=== PATIENT | female | born 1940 | race Caucasian/White ===

== ENCOUNTER 2017-08-29 20:00 | Emergency (ER) | payer MEDICARE, MEDICAID ==
[2017-08-29] MEDS ORDERED: Famotidine 20 MG/2 ML SDV IVPUSH ONE (20:21)
[2017-08-29] MEDS ORDERED: Metoprolol Tartrate 5 MG/5 ML SDV IVPUSH ONE (20:21)
--- NOTE | 2017-08-29 20:21 | EDM.PDOC ---
ED HPI GENERAL MEDICAL PROBLEM - General Chief Complaint: General Stated Complaint: Dizziness Time Seen by Provider: 08/29/17 20:20 Source of Information: Reports: Patient, EMS, EMS Notes Reviewed, Care Home Records, Old Records ([facility] chart/EMR) History Limitations: Reports: Altered Mental Status - History of Present Illness INITIAL COMMENTS - FREE TEXT/NARRATIVE: The patient was brought to the emergency room via ambulance with basic EMT transport with no treatment in route. Note the patient was outside when she again having some intermittent dizziness with borderline vertigo and some mild tachycardia with no history of fall, syncope, injury, etc. She is a poor historian secondary to her baseline organic brain syndrome, which is stable per nurse's history from the longterm. The patient denies any chest pain/ pressure, orthostasis, orthopnea, diaphoresis, paresthesias, recent decreased exercise tolerance, or any other anginal-type symptoms. No recent history of abdominal pain, heartburn, nausea, diarrhea, melena, gross hematochezia, or any food intolerance, including fatty foods, etc.. She also denies any UTI symptoms. The patient also denies any recent fever, cough, wheezing, dyspnea, etc.. No history of recent headaches, visual changes, diplopia, change in mental status, or other change in neurological status. She denies any pain or discomfort other than her 5/10 chronic low back pain. Onset: Today, Gradual Onset Date: 08/29/17 Onset Time: 16:00 Duration: Intermittent Quality: Reports: Same as Previous Episode Severity: Mild Improves with: Reports: None Worsens with: Reports: None Context: Reports: Other (As above). Denies: Sick Contact, Trauma Associated Symptoms: Reports: Confusion (Stable chronic). 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: Other (see below) (None) Back Pain Score (Numeric/FACES): 5 (Stable chronic low back pain) - Related Data Allergies Allergy/AdvReac Type Severity Reaction Status Date / Time strawberry Allergy Facial Verified 07/22/15 15:37 Swelling Home Meds: Home Meds Acetaminophen [Acetaminophen Extra Strength] 2 tab PO BID 10/15/14 [History] Alendronate Sodium [Alendronate] 70 mg PO Q7D 10/15/14 [History] Calcium Carbonate/Vitamin D3 [Calcium 600 + D Tablet] 1 tab PO BID 10/15/14 [ History] Cranberry Extract [Cranberry] 500 mg PO BID 10/15/14 [History] Cyanocobalamin (Vitamin B-12) [Cyanocobalamin Injection] 1,000 mcg IM Q30D 10/15 [History] Diltiazem HCl [Cardizem Cd] 1 cap PO DAILY 10/15/14 [History] Folic Acid 1 tab PO DAILY 10/15/14 [History] Gemfibrozil [Lopid] 1 tab PO BID 10/15/14 [History] Loratadine 1 tab PO DAILY 10/15/14 [History] Magnesium Chloride [Mag-64] 1 tab PO DAILY 10/15/14 [History] Multivit-Min/FA/Lycopene/Lut [Sentry Senior Tablet] 1 tab PO DAILY 10/15/14 [ History] Omeprazole 20 mg PO BID 10/15/14 [History] Oxybutynin Chloride 5 mg PO TID 10/15/14 [History] Potassium Chloride 1 cap PO BID 10/15/14 [History] QUEtiapine Fumarate [Quetiapine Fumarate] 50 mg PO 0800 10/15/14 [History] QUEtiapine Fumarate [Quetiapine Fumarate] 200 mg PO BEDTIME 10/15/14 [History] diphenhydrAMINE HCl [Diphenhydramine HCl] 2 tab PO Q6HR PRN 10/15/14 [History] fluvoxaMINE [Luvox] 150 mg PO BID 10/15/14 [History] Container,Empty [Enema Bottle] 1 each MC DAILY PRN 07/22/15 [History] Lactulose 30 ml PO BID 07/22/15 [History] Lisinopril 5 mg PO DAILY 07/22/15 [History] Non-Formulary Medication [NF Drug] 10 ml PO Q4H PRN 07/22/15 [History] Sennosides/Docusate Sodium [Senna-S Tablet] 1 each PO BID 07/22/15 [History] diphenhydrAMINE HCl [Diphedryl] 25 mg PO Q6H PRN 07/22/15 [History] Furosemide [Lasix] 20 mg PO DAILY #14 tab 08/29/17 [Rx] Levothyroxine [Synthroid] 50 mcg PO ACBREAKFAST #60 tab 08/29/17 [Rx] Metoprolol Succinate [Toprol XL] 25 mg PO BEDTIME #30 tab.er 08/29/17 [Rx] Potassium Chloride 20 meq PO DAILY #14 tablet.er 08/29/17 [Rx] Past Medical History HEENT History: Reports: Allergic Rhinitis, Hard of Hearing, Impaired Vision, Other (See Below) Other HEENT History: Hx of Conjunctivitis. Patient wears glasses. Mild bilateral presbycusis with no current therapy. Cardiovascular History: Reports: Afib, Arrhythmia, CAD, Cardiomyopathy, Heart Failure, High Cholesterol, Hypertension, Other (See Below) Other Cardiovascular History: Cardiomegaly. Dyslipidemia. Respiratory History: Reports: Bronchitis, Recurrent, COPD, Intubation, Previous , Pulmonary Fibrosis. Denies: Intubation, Difficult Gastrointestinal History: Reports: Cholelithiasis, Chronic Constipation, Colon Polyp, Fecal Incontinence, Gastritis, GERD, Hemorrhoids, Hiatal Hernia, Jaundice , PUD, Other (See Below) Other Gastrointestinal History: Fatty liver with chronic LFTs elevation. History of colon cancer as below. 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 Previous history of left ankle fracture. Left elbow fracture in 2001. Left proximal femur fracture on 12/16/10. Scoliosis. 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 Psychiatric History: Reports: Alzheimers Disease, Anxiety, Dementia, Depression , Emotional Problems, OCD, Schizophrenia, Other (See Below) Other Psychiatric History: personality disorder Endocrine/Metabolic History: Reports: Osteopenia, Osteoporosis, Other (See Below ) Other Endocrine/Metabolic History: Hypomagnesemia Hematologic History: Reports: Anemia, B12 Deficiency, Iron Deficiency, Other ( See Below) Other Hematologic History: Polycythemia. Pernicious anemia. Immunologic History: Reports: None Oncologic (Cancer) History: Reports: Colon, Other (See Below) Other Oncologic History: Atypical urothelial cells on 02/21/06 with unknown workup or treatment. - Infectious Disease History Infectious Disease History: Reports: Other (See Below) Other Infectious Disease History: Polio as a child - Past Surgical History HEENT Surgical History: Reports: Oral Surgery, Other (See Below) Other HEENT Surgeries/Procedures: Complete teeth extractions. GI Surgical History: Reports: Colon, Colonoscopy, EGD, Polypectomy, Other (See Below) Other GI Surgeries/Procedures: Rectal polyp excision via colonoscopy on . EGD and colonoscopy on 08/08/07 and 08/17/05. Right hemicolectomy concomitant appendectomy secondary to colon cancer in the . Female Surgical History: Reports: Hysterectomy, Other (See Below) Other Female Surgeries/Procedures: Hysterectomy in 2004 for unknown reason. Musculoskeletal Surgical History: Reports: ORIF, Other (See Below) Other Musculoskeletal Surgeries/Procedures:: ORIF of left ankle and left hip fracture. ORIF of left elbow fracture in 2001. - Past Imaging History Past Imaging History: Reports: CAT Scan (CT of the abdomen and pelvis on . CT of the chest on 07/22/15), DEXA Scan (04/13/11) Social & Family History - Tobacco Use Smoking Status *Q: Never Smoker Tobacco Use Within Last Twelve Months: No Used Tobacco, but Quit: No Smoking Cessation Information Provided To Patient: No Second Hand Smoke Exposure: No Second Hand Smoke Education Provided: No - Living Situation & Occupation Living situation: Reports: Extended Care Facility ([facility] longterm, basic care) ED ROS GENERAL - Review of Systems Review Of Systems: ROS reveals no pertinent complaints other than HPI. ED EXAM, GENERAL - Physical Exam Exam: See Below Exam Limited By: No Limitations General Appearance: Alert, WD/WN, No Apparent Distress Eye Exam: Bilateral Eye: EOMI, Normal Fundi, Normal Inspection (No nystagmus with questionable borderline vertigo with head movement. She is not wearing her glasses), PERRL Ears: Normal External Exam, Normal Canal, Normal TMs, Hearing Loss (Mild bilateral presbycusis with no therapy) Nose: Normal Inspection, Normal Mucosa, No Blood Throat/Mouth: Normal Lips, Normal Gums, Normal Oropharynx, Normal Voice, No Airway Compromise. No: Normal Teeth (Complete absent dentition with the patient not having her dentures), Dysphagia, Perioral Cyanosis Head: Atraumatic, Normocephalic. No: Facial Swelling, Facial Tenderness, Sinus Tenderness Neck: Supple, Non-Tender, Full Range of Motion, Carotid Bruit (Mild bilateral carotid bruits). No: Lymphadenopathy (L), Lymphadenopathy (R), Thyromegaly Respiratory/Chest: No Respiratory Distress, Lungs Clear, Normal Breath Sounds, No Accessory Muscle Use, Chest Non-Tender. No: Pleural Rub, Retractions Cardiovascular: Normal Peripheral Pulses, No Gallop, No JVD, No Murmur, No Rub, Tachycardia, Irregularly Irregular. No: No Edema (Stable dependent edema by history), Gallop/S3, Gallop/S4 Peripheral Pulses: 2+: Radial (L), Radial (R), Dorsalis Pedis (L), Dorsalis Pedis (R) GI/Abdominal: Normal Bowel Sounds, Soft, Non-Tender, No Organomegaly, No Distention, No Abnormal Bruit, No Mass, Pelvis Stable. No: Guarding (Female) Exam: Deferred Rectal (Female) Exam: Deferred Back Exam: Full Range of Motion, Other (Mild scoliosis, no tenderness). No: CVA Tenderness (L), CVA Tenderness (R), Muscle Spasm, Paraspinal Tenderness, Vertebral Tenderness Extremities: Non-Tender, Normal Capillary Refill, Pedal Edema (Stable +1 bilateral pedal/pretibial edema), Other (Stable moderate laxity of the left arm secondary to distant fracture). No: Gwen's Sign Neurological: Alert, Normal Reflexes (Negative Babinski's), Confused (Stable mild to moderate organic brain syndrome) Psychiatric: Normal Affect, Normal Mood Skin Exam: Warm, Dry, Intact, Normal Color, No Rash. No: Diaphoretic Lymphatic: No Adenopathy EKG INTERPRETATION EKG Date: 08/29/17 Time: 21:13 Rhythm: A-Fib Rate (Beats/Min): 98 [place]: Normal (Cardiac axisleft) P-Wave: Variable QRS: Normal (QRS interval of 0.08 seconds) ST-T: Other (Improved T-wave inversion in leads V1- V3 and lead 3 with previous T-wave inversions in leads V4 and V5.) QT: Prolonged (366/467 ms) MA/PQ Interval: Not applicable Comparison: Change From Previous EKG (Since last EKG on 07/22/15 as above) Course - Vital Signs Last Recorded V/S: Last Vital Signs Temp 36.8 C 08/29/17 21:32 Pulse 116 H 08/29/17 22:27 Resp 20 08/29/17 22:27 BP 129/73 08/29/17 22:27 Pulse Ox 97 08/29/17 22:27 Vital Signs - 24 hr 08/29/17 08/29/17 08/29/17 20:21 20:44 20:50 Temperature [ Temporal] Pulse, 118 H Peripheral Pulse, 117 H 96 Peripheral [ Right Pulse Oximetry] Respiratory 20 20 Rate Blood Pressure 108/91 H Blood Pressure 108/91 H 123/80 [Right Upper Arm] O2 Sat by Pulse 96 97 Oximetry 08/29/17 08/29/17 08/29/17 21:32 21:38 22:01 Temperature [ 36.8 C Temporal] Pulse, Peripheral Pulse, 121 H 97 93 Peripheral [ Right Pulse Oximetry] Respiratory 21 H 19 18 Rate Blood Pressure Blood Pressure 96/59 L 113/81 109/76 [Right Upper Arm] O2 Sat by Pulse 98 97 98 Oximetry 08/29/17 08/29/17 22:23 22:27 Temperature [ Temporal] Pulse, 117 H Peripheral Pulse, 116 H Peripheral [ Right Pulse Oximetry] Respiratory 20 Rate Blood Pressure 129/73 Blood Pressure 129/73 [Right Upper Arm] O2 Sat by Pulse 97 Oximetry - Orders/Labs/Meds Orders: Active Orders 24 hr Category Date Time Status Cardiac Monitoring [RC] . DIRECTED Care 08/29/17 20:21 Active EKG Documentation Completion [RC] ASDIRECTED Care 08/29/17 20:21 Active Oxygen Therapy, ED [RC] PRN Care 08/29/17 20:21 Active Peripheral IV Care [RC] . DIRECTED Care 08/29/17 20:21 Active Pulse Oximetry [RC] CONTINUOUS Care 08/29/17 20:21 Active Up With Assistance [RC] PFP Care 08/29/17 20:21 Active Vital Signs [RC] PFP Care 08/29/17 20:21 Active Nothing per Oral Now Diet [DIET] Diet 08/29/17 Breakfast Active Chest 1V Frontal [CR] Stat Exams 08/29/17 20:21 Taken IRON/TIBC [CHEM] Routine Lab 08/29/17 21:40 Ordered Sodium Chloride 0.9% [Saline Flush] Med 08/29/17 20:21 Active 10 ml FLUSH ASDIRECTED PRN Obtain Past Medical Record [OM.PC] Urgent Oth 08/29/17 20:21 Active Peripheral IV Insertion Adult [OM.PC] Stat Oth 08/29/17 20:21 Ordered Resuscitation Status Stat Resus Stat 08/29/17 20:21 Ordered Medication Orders Sodium Chloride (Saline Flush) 10 ml FLUSH ASDIRECTED PRN PRN Reason: Keep Vein Open Last Admin: 08/29/17 22:34 Dose: 10 ml Admin: 08/29/17 20:44 Dose: 10 ml Labs: Laboratory Tests 08/29/17 08/29/17 08/29/17 Range/Units 20:35 20:35 20:35 WBC 9.8 (4.0-10.2) K/uL RBC 3.38 L (3.77-5.09) M/uL Hgb 10.6 L D (11.7-15.5) g/dL Hct 31.8 L (34.0-46.0) % MCV 94.1 D (84.0-98.0) fL MCH 31.4 (28.2-33.3) pg MCHC 33.3 (31.7-36.0) g/dL RDW 13.3 (11.2-14.1) % Plt Count 293 (150-350) K/uL Neut % (Auto) 82.6 H (45.0-80.0) % Lymph % (Auto) 8.0 L (10.0-50.0) % [place] % (Auto) 7.8 (2.0-14.0) % Eos % (Auto) 1.3 (0.0-5.0) % Baso % (Auto) 0.3 (0.0-2.0) % Neut # (Auto) 8.05 H (1.40-7.00) K/uL Lymph # (Auto) 0.78 (0.50-3.50) K/uL [place] # (Auto) 0.76 (0.00-1.00) K/uL Eos # (Auto) 0.13 (0.00-0.50) K/uL Baso # (Auto) 0.03 (0.00-0.20) K/uL PT 23.3 H (9.8-11.7) SEC INR 2.1 APTT 33.7 H (22.1-29.8) SEC D-Dimer, Quantitative 140 (0-400) ng/mL Sodium (136-145) mmol/L Potassium (3.5-5.1) mmol/L Chloride (98-107) mmol/L Carbon Dioxide (21.0-32.0) mmol/L BUN (7-18) mg/dL Creatinine (0.51-1.17) mg/dL Est Cr Clr Drug Dosing mL/min Estimated GFR (MDRD) mL/min Glucose (74-106) mg/dL Lactic Acid (0.4-2.0) mmol/L Uric Acid (2.6-7.2) mg/dL Calcium (8.5-10.1) mg/dL Magnesium (1.8-2.4) mg/dL Total Bilirubin (0.2-1.0) mg/dL AST (15-37) U/L ALT (12-78) U/L Alkaline Phosphatase (46-116) IU/L Creatine Kinase (26-308) U/L Creatine Kinase Index (0.0-2.5) % CK-MB (CK-2) (0.00-3.60) ng/mL Troponin I (0.000-0.056) ng/mL NT-Pro-B Natriuret Pep (0-125) pg/mL Total Protein (6.4-8.2) g/dL Albumin (3.4-5.0) g/dL TSH, Ultra Sensitive (0.358-3.740) mIU/mL 08/29/17 08/29/17 Range/Units 20:35 20:35 WBC (4.0-10.2) K/uL RBC (3.77-5.09) M/uL Hgb (11.7-15.5) g/dL Hct (34.0-46.0) % MCV (84.0-98.0) fL MCH (28.2-33.3) pg MCHC (31.7-36.0) g/dL RDW (11.2-14.1) % Plt Count (150-350) K/uL Neut % (Auto) (45.0-80.0) % Lymph % (Auto) (10.0-50.0) % [place] % (Auto) (2.0-14.0) % Eos % (Auto) (0.0-5.0) % Baso % (Auto) (0.0-2.0) % Neut # (Auto) (1.40-7.00) K/uL Lymph # (Auto) (0.50-3.50) K/uL [place] # (Auto) (0.00-1.00) K/uL Eos # (Auto) (0.00-0.50) K/uL Baso # (Auto) (0.00-0.20) K/uL PT (9.8-11.7) SEC INR APTT (22.1-29.8) SEC D-Dimer, Quantitative (0-400) ng/mL Sodium 140 (136-145) mmol/L Potassium 4.3 (3.5-5.1) mmol/L Chloride 109 H (98-107) mmol/L Carbon Dioxide 13.6 L (21.0-32.0) mmol/L BUN 32 H (7-18) mg/dL Creatinine 1.24 H (0.51-1.17) mg/dL Est Cr Clr Drug Dosing 35.57 mL/min Estimated GFR (MDRD) 42 mL/min Glucose 108 H (74-106) mg/dL Lactic Acid 1.0 (0.4-2.0) mmol/L Uric Acid 5.5 (2.6-7.2) mg/dL Calcium 8.0 L (8.5-10.1) mg/dL Magnesium 0.8 L (1.8-2.4) mg/dL Total Bilirubin 0.1 L (0.2-1.0) mg/dL AST 20 (15-37) U/L ALT 19 (12-78) U/L Alkaline Phosphatase 78 (46-116) IU/L Creatine Kinase 49 (26-308) U/L Creatine Kinase Index 2.2 (0.0-2.5) % CK-MB (CK-2) 1.10 (0.00-3.60) ng/mL Troponin I 0.002 (0.000-0.056) ng/mL NT-Pro-B Natriuret Pep 2754 H (0-125) pg/mL Total Protein 6.5 (6.4-8.2) g/dL Albumin 2.8 L (3.4-5.0) g/dL TSH, Ultra Sensitive 4.378 H (0.358-3.740) mIU/mL Meds: Medications Generic Name Dose Route Start Last Admin Trade Name Freq PRN Reason Stop Dose Admin Sodium Chloride 10 ml 08/29/17 20:21 08/29/17 22:34 Saline Flush FLUSH 10 ml ASDIRECTED PRN Administration Keep Vein Open Discontinued Medications Generic Name Dose Route Start Last Admin Trade Name Freq PRN Reason Stop Dose Admin Famotidine 40 mg 08/29/17 20:21 08/29/17 20:43 Pepcid IVPUSH 08/29/17 20:22 40 mg ONETIME ONE Administration Furosemide 40 mg 08/29/17 22:29 08/29/17 22:32 Lasix IVPUSH 08/29/17 22:30 40 mg NOW ONE Administration Metoprolol Succinate 25 mg 08/29/17 22:09 08/29/17 22:23 Toprol Xl PO 08/29/17 22:10 25 mg ONETIME ONE Administration Metoprolol Tartrate 2.5 mg 08/29/17 20:21 08/29/17 20:44 Lopressor IVPUSH 08/29/17 20:22 2.5 mg ONETIME ONE Administration Potassium Chloride 20 meq 08/29/17 22:29 08/29/17 22:32 Klor-Con M20 PO 08/29/17 22:30 20 meq ONETIME ONE Administration - Radiology Interpretation Free Text/Narrative:: Chest x-ray, portable, shows evidence of moderate to severe osteoarthritic and osteoporotic changes including mild scoliosis. Moderate cardiomegaly, COPD, and pulmonary fibrosis with probable pulmonary hypertension versus borderline centralized CHF. No pneumothorax, significant pulmonary infiltrates, etc. 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 No other ectopy or arrhythmia Departure - Departure Time of Disposition: 22:50 Disposition: Home, Self-Care 01 Condition: Fair Clinical Impression: Hypothyroidism (acquired), Renal insufficiency, Microcytic anemia, Hypomagnesemia Atrial fibrillation Qualifiers: Atrial fibrillation type: unspecified Qualified Code(s): I48.91 - Unspecified atrial fibrillation Schizophrenia Qualifiers: Schizophrenia type: other Qualified Code(s): F20.89 - Other schizophrenia COPD (chronic obstructive pulmonary disease) Qualifiers: COPD type: emphysema Emphysema type: panlobular Qualified Code(s): J43.1 - Panlobular emphysema Coronary artery disease Qualifiers: Coronary Disease-Associated Artery/Lesion type: [place] artery [place] vs. transplanted heart: [place] heart Associated angina: without angina Qualified Code(s): I25.10 - Atherosclerotic heart disease of [place] coronary artery without angina pectoris Osteoarthritis Qualifiers: Osteoarthritis location: multiple joints Osteoarthritis type: primary Qualified Code(s): M15.0 - Primary generalized (osteo)arthritis CHF (congestive heart failure) Qualifiers: Heart failure type: unspecified Heart failure chronicity: acute on chronic Qualified Code(s): I50.9 - Heart failure, unspecified - Discharge Information *PRESCRIPTION DRUG MONITORING PROGRAM REVIEWED*: Not Applicable *COPY OF PRESCRIPTION DRUG MONITORING REPORT IN PATIENT STEPHANE: Not Applicable Prescriptions: Furosemide [Lasix] 20 mg PO DAILY #14 tab Levothyroxine [Synthroid] 50 mcg PO ACBREAKFAST #60 tab Metoprolol Succinate [Toprol XL] 25 mg PO BEDTIME #30 tab.er Potassium Chloride 20 meq PO DAILY #14 tablet.er Referrals: Sheets-Brenda Alonso MD [Primary Care Provider] - Forms: ED Department Discharge Additional Instructions: 1. Follow up with your regular provider in 7 days as directed for reevaluation and recommended repeat CBC, basic metabolic panel, CK, CK-MB, troponin I, and BNP. Bring these discharge instructions with you to that visit.. 2. Notify regular provider of additional medication changes today. 3. Vital signs every shift 48 hours with regular provider to be updated 4. TSH should be repeated in 4 weeks secondary to newly initiated Synthroid. 5. You should hear from the hospital or physician within the next 48 hours about today's iron studies, which are pending. Inform regular provider of these test results when obtained for further instructions.. - Problem List & Annotations (1) Atrial fibrillation SNOMED Code(s): 58279256 Code(s): I48.91 - UNSPECIFIED ATRIAL FIBRILLATION Status: Acute Priority : High Current Visit: Yes Annotation/Comment:: Mild tachycardia today with initially good response with IV Lopressor therapy additional Toprol-XL was given prior to discharge. No chest pain or anginal type symptoms despite elevated BNP with only mild mostly centralized CHF by today's chest x-ray. Close follow-up by regular provider as per discharge instructions. IV Lasix and oral potassium given in the emergency room as above with continuation of oral therapy at discharge. Note some hypomagnesemia which should be observed closely secondary to her Lasix therapy. Qualifiers: Atrial fibrillation type: chronic Qualified Code(s): I48.2 - Chronic atrial fibrillation (2) CHF (congestive heart failure) SNOMED Code(s): 68290332 Code(s): I50.9 - HEART FAILURE, UNSPECIFIED Status: Acute Priority: High Current Visit: Yes Annotation/Comment:: As above. Note renal insufficiency may be a contributing therapy to her BNP elevation Qualifiers: Heart failure type: unspecified Heart failure chronicity: acute on chronic Qualified Code(s): I50.9 - Heart failure, unspecified (3) COPD (chronic obstructive pulmonary disease) SNOMED Code(s): 67000226 Code(s): J44.9 - CHRONIC OBSTRUCTIVE PULMONARY DISEASE, UNSPECIFIED Status : Chronic Priority: Medium Current Visit: Yes Annotation/Comment:: Stable by history with no recent fever or bronchitic type symptoms. Qualifiers: COPD type: emphysema Emphysema type: panlobular Qualified Code(s): J43.1 - Panlobular emphysema (4) Coronary artery disease SNOMED Code(s): 99634509 Code(s): I25.10 - ATHSCL HEART DISEASE OF [place] CORONARY ARTERY W/O ANG PCTRS Status: Acute Priority: Medium Current Visit: Yes Annotation/ Comment:: As above Qualifiers: Coronary Disease-Associated Artery/Lesion type: [place] artery [place] vs. transplanted heart: [place] heart Associated angina: without angina Qualified Code(s): I25.10 - Atherosclerotic heart disease of [place] coronary artery without angina pectoris (5) Hypothyroidism (acquired) SNOMED Code(s): 877071503 Code(s): E03.9 - HYPOTHYROIDISM, UNSPECIFIED Status: Acute Priority: High Current Visit: Yes Onset Date: 08/29/17 Annotation/Comment:: Newly diagnosed today with mildly elevated TSH. Low-dose Synthroid will be initiated tomorrow morning with TSH to be repeated in 4 weeks. (6) Osteoarthritis SNOMED Code(s): 257455763 Code(s): M19.90 - UNSPECIFIED OSTEOARTHRITIS, UNSPECIFIED SITE Status: Chronic Priority: Medium Current Visit: Yes Annotation/Comment:: Stable by history Qualifiers: Osteoarthritis location: multiple joints Osteoarthritis type: primary Qualified Code(s): M15.0 - Primary generalized (osteo)arthritis (7) Renal insufficiency SNOMED Code(s): 117623674, 887823907 Code(s): N28.9 - DISORDER OF KIDNEY AND URETER, UNSPECIFIED Status: Chronic Priority: Medium Current Visit: Yes Annotation/Comment:: Stable by history and today's blood work. Continue to observe closely secondary to Lasix therapy as above. (8) Schizophrenia SNOMED Code(s): 37905412 Code(s): F20.9 - SCHIZOPHRENIA, UNSPECIFIED Status: Chronic Priority: Medium Current Visit: Yes Annotation/Comment:: Stable by history with additional anxiety depression disorder and obsessive-compulsive disorder as above. Qualifiers: Schizophrenia type: other Qualified Code(s): F20.89 - Other schizophrenia; F20.8 - Other schizophrenia (9) Hypomagnesemia SNOMED Code(s): 081034574 Code(s): E83.42 - HYPOMAGNESEMIA Status: Acute Priority: Medium Current Visit: Yes Onset Date: 08/29/17 Annotation/Comment:: As above. Regular provider to consider increase of current magnesium supplementation. (10) Microcytic anemia SNOMED Code(s): 773916442 Code(s): D50.9 - IRON DEFICIENCY ANEMIA, UNSPECIFIED Status: Chronic Priority: Medium Current Visit: Yes Annotation/Comment:: TIBC panel ordered today with evaluation to be conducted tomorrow morning and results to be called to longterm. Reinitiate iron sulfate therapy depending on these results. - Problem List Review Problem List Initiated/Reviewed/Updated: Yes - My Orders Last 24 Hours: My Active Orders 08/29/17 20:21 Cardiac Monitoring [RC] . DIRECTED EKG Documentation Completion [RC] ASDIRECTED Oxygen Therapy, ED [RC] PRN Peripheral IV Care [RC] . DIRECTED Pulse Oximetry [RC] CONTINUOUS Up With Assistance [RC] PFP Vital Signs [RC] PFP Chest 1V Frontal [CR] Stat Sodium Chloride 0.9% [Saline Flush] 10 ml FLUSH ASDIRECTED PRN Obtain Past Medical Record [OM.PC] Urgent Peripheral IV Insertion Adult [OM.PC] Stat Resuscitation Status Stat 08/29/17 21:40 IRON/TIBC [CHEM] Routine 08/29/17 Breakfast Nothing per [facility] Diet [DIET] - Assessment/Plan Last 24 Hours: My Active Orders 08/29/17 20:21 Cardiac Monitoring [RC] . DIRECTED EKG Documentation Completion [RC] ASDIRECTED Oxygen Therapy, ED [RC] PRN Peripheral IV Care [RC] . DIRECTED Pulse Oximetry [RC] CONTINUOUS Up With Assistance [RC] PFP Vital Signs [RC] PFP Chest 1V Frontal [CR] Stat Sodium Chloride 0.9% [Saline Flush] 10 ml FLUSH ASDIRECTED PRN Obtain Past Medical Record [OM.PC] Urgent Peripheral IV Insertion Adult [OM.PC] Stat Resuscitation Status Stat 08/29/17 21:40 IRON/TIBC [CHEM] Routine 08/29/17 Breakfast Nothing per [facility] Diet [DIET] Assessment:: As above Plan: As above. Extensive precautions were given to the patient and longterm staff , who are in agreement with the treatment plan. See Patient Instructions for further treatment and plan.
[2017-08-29] MEDS: Sodium Chloride 0.9% 10 ML Syringe FLUSH PRN ×2 (20:44→22:34)
[2017-08-29] MEDS ORDERED: Metoprolol Succinate 25 MG Tab.ER PO ONE (22:09)
[2017-08-29 22:26] VITALS: BP 129/73
[2017-08-29] MEDS ORDERED: Potassium Chloride 20 MEQ Tab.ER PO ONE (22:29)
[2017-08-29] MEDS ORDERED: Furosemide 40 MG/4 ML VIAL IVPUSH ONE (22:29)
== END 2017-08-29 22:45 | disposition home or self-care (01) ==
LOC: LL.ED 20:00
DX: I48.91 Unspecified atrial fibrillation (principal); E83.42 Hypomagnesemia; I11.0 Hypertensive heart disease with heart failure; I50.9 Heart failure, unspecified; E03.9 Hypothyroidism, unspecified; N28.9 Disorder of kidney and ureter, unspecified; D50.9 Iron deficiency anemia, unspecified; F20.89 Other schizophrenia; J43.1 Panlobular emphysema; I25.10 Atherosclerotic heart disease of native coronary artery without angina pectoris; M15.0 Primary generalized (osteo)arthritis; Z91.018 Allergy to other foods
CPT/HCPCS: 36415; 71045; 80053; 82550; 82553; 83540; 83550; 83605; 83735; 83880; 84443; 84484; 84550; 85025; 85379; 85610; 85730; 93005; 96374; 96375; 99285; A9270-GY; J1940; J3490; J7050

== ENCOUNTER 2017-09-22 16:19 | Emergency (ER) | payer MEDICARE, MEDICAID ==
--- NOTE | 2017-09-22 17:00 | EDM.PDOC ---
ED HPI GENERAL MEDICAL PROBLEM - General Chief Complaint: Lower Extremity Injury/Pain Stated Complaint: left knee pain, abdominal pain Time Seen by Provider: 09/22/17 16:40 Source of Information: Reports: Patient, Mcc Records History Limitations: Reports: No Limitations - History of Present Illness INITIAL COMMENTS - FREE TEXT/NARRATIVE: Patient is a 77-year-old with left knee pain started a couple days ago and progressively got worse denies any trauma or falls Onset: Gradual Duration: Day(s):, Constant Location: Reports: Lower Extremity, Left Quality: Reports: Ache, Throbbing Severity: Moderate Improves with: Reports: Rest Worsens with: Reports: Immobilization Context: Reports: Trauma Associated Symptoms: Reports: No Other Symptoms Treatments 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 Left Knee Pain Score (Numeric/FACES): 5 - Related Data Allergies Allergy/AdvReac Type Severity Reaction Status Date / Time strawberry Allergy Facial Verified 09/22/17 16:23 Swelling Home Meds: Home Meds Acetaminophen [Acetaminophen Extra Strength] 2 tab PO BID 10/15/14 [History] Alendronate Sodium [Alendronate] 70 mg PO Q7D 10/15/14 [History] Calcium Carbonate/Vitamin D3 [Calcium 600 + D Tablet] 1 tab PO BID 10/15/14 [ History] Cranberry Extract [Cranberry] 500 mg PO BID 10/15/14 [History] Cyanocobalamin (Vitamin B-12) [Cyanocobalamin Injection] 1,000 mcg IM Q30D 10/15 [History] Diltiazem HCl [Cardizem Cd] 1 cap PO DAILY 10/15/14 [History] Folic Acid 1 tab PO DAILY 10/15/14 [History] Gemfibrozil [Lopid] 1 tab PO BID 10/15/14 [History] Loratadine 1 tab PO DAILY 10/15/14 [History] Magnesium Chloride [Mag-64] 1 tab PO DAILY 10/15/14 [History] Multivit-Min/FA/Lycopene/Lut [Sentry Senior Tablet] 1 tab PO DAILY 10/15/14 [ History] Omeprazole 20 mg PO BID 10/15/14 [History] diphenhydrAMINE HCl [Diphenhydramine HCl] 2 tab PO Q6HR PRN 10/15/14 [History] fluvoxaMINE [Luvox] 150 mg PO BID 10/15/14 [History] Lactulose 30 ml PO BID 07/22/15 [History] Lisinopril 5 mg PO DAILY 07/22/15 [History] Sennosides/Docusate Sodium [Senna-S Tablet] 1 each PO BID 07/22/15 [History] diphenhydrAMINE HCl [Diphedryl] 25 mg PO Q6H PRN 07/22/15 [History] Levothyroxine [Synthroid] 50 mcg PO ACBREAKFAST #60 tab 08/29/17 [Rx] Metoprolol Succinate [Toprol XL] 25 mg PO BEDTIME #30 tab.er 08/29/17 [Rx] QUEtiapine Fumarate [Seroquel] 200 mg PO DAILY 09/22/17 [History] QUEtiapine [SEROquel] 50 mg PO DAILY 09/22/17 [History] Trolamine Salicylate/Aloe Vera [Aspercreme 10%] 1 applic TOP TID PRN 09/22/17 [ History] traMADol HCl [Tramadol HCl] 50 mg PO TID PRN 09/22/17 [History] Past Medical History HEENT History: Reports: Allergic Rhinitis, Hard of Hearing, Impaired Vision, Other (See Below) Other HEENT History: Hx of Conjunctivitis. Patient wears glasses. Mild bilateral presbycusis with no current therapy. Cardiovascular History: Reports: Afib, Arrhythmia, CAD, Cardiomyopathy, Heart Failure, High Cholesterol, Hypertension, Other (See Below) Other Cardiovascular History: Cardiomegaly. Dyslipidemia. Respiratory History: Reports: Bronchitis, Recurrent, COPD, Intubation, Previous , Pulmonary Fibrosis Gastrointestinal History: Reports: Cholelithiasis, Chronic Constipation, Colon Polyp, Fecal Incontinence, Gastritis, GERD, Hemorrhoids, Hiatal Hernia, Jaundice , PUD, Other (See Below) Other Gastrointestinal History: Fatty liver with chronic LFTs elevation. History of colon cancer as below. Genitourinary History: Reports: Hydronephrosis, Renal Calculus, Urinary Incontinence, UTI, Recurrent, Other (See Below) Other Genitourinary History: Urinary Urgency Other IT SPECIALIST History: Surgical menopause Musculoskeletal History: Reports: Arthritis, Back Pain, Chronic, Fracture, Neck Pain, Chronic, Osteoarthritis, Osteoporosis, Other (See Below) Other Musculoskeletal History: History of left proximal fibula fracture on . Previous history of left ankle fracture. Left elbow fracture in 2001. Left proximal femur fracture on 12/16/10. Scoliosis. 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 Psychiatric History: Reports: Alzheimers Disease, Anxiety, Dementia, Depression , Emotional Problems, OCD, Schizophrenia, Other (See Below) Other Psychiatric History: personality disorder Endocrine/Metabolic History: Reports: Osteopenia, Osteoporosis, Other (See Below ) Other Endocrine/Metabolic History: Hypomagnesemia Hematologic History: Reports: Anemia, B12 Deficiency, Iron Deficiency, Other ( See Below) Other Hematologic History: Polycythemia. Pernicious anemia. Immunologic History: Reports: None Oncologic (Cancer) History: Reports: Colon, Other (See Below) Other Oncologic History: Atypical urothelial cells on 02/21/06 with unknown workup or treatment. - Infectious Disease History Infectious Disease History: Reports: Measles, Mumps, Other (See Below) Other Infectious Disease History: Polio as a child - Past Surgical History HEENT Surgical History: Reports: Oral Surgery, Other (See Below) Other HEENT Surgeries/Procedures: Complete teeth extractions. GI Surgical History: Reports: Colon, Colonoscopy, EGD, Polypectomy, Other (See Below) Other GI Surgeries/Procedures: Rectal polyp excision via colonoscopy on . EGD and colonoscopy on 08/08/07 and 08/17/05. Right hemicolectomy concomitant appendectomy secondary to colon cancer in the 1980s. Female Surgical History: Reports: Hysterectomy, Other (See Below) Other Female Surgeries/Procedures: Hysterectomy in 2004 for unknown reason. Musculoskeletal Surgical History: Reports: ORIF, Other (See Below) Other Musculoskeletal Surgeries/Procedures:: ORIF of left ankle and left hip fracture. ORIF of left elbow fracture in 2001. - Past Imaging History Past Imaging History: Reports: CAT Scan (CT of the abdomen and pelvis on . CT of the chest on 07/22/15), DEXA Scan (04/13/11) Social & Family History - Tobacco Use Smoking Status *Q: Never Smoker - Caffeine Use Caffeine Use: Reports: None - Recreational Drug Use Recreational Drug Use: No - Living Situation & Occupation Living situation: Reports: Extended Care Facility ([facility] half-way, basic care) Review of Systems - Review of Systems Review Of Systems: See Below () Constitutional: Reports: No Symptoms. Denies: Chills, Fever Eyes: Reports: No Symptoms Ears: Reports: No Symptoms Nose: Reports: No Symptoms Mouth/Throat: Reports: No Symptoms Respiratory: Reports: No Symptoms Cardiovascular: Reports: No Symptoms GI/Abdominal: Reports: No Symptoms Genitourinary: Reports: Incontinence Musculoskeletal: Reports: Joint Pain (Left knee pain to flexion) ED EXAM, GENERAL - Physical Exam Exam: See Below Exam Limited By: No Limitations General Appearance: Alert, WD/WN, No Apparent Distress Ears: Normal External Exam, Normal Canal, Hearing Grossly Normal, Normal TMs Ear Exam: Bilateral Ear: Auricle Normal, Canal Normal, TM normal Nose: Normal Inspection, Normal Mucosa, No Blood Throat/Mouth: Normal Inspection, Normal Lips, Normal Teeth, Normal Gums, Normal Oropharynx, Normal Voice, No Airway Compromise Head: Atraumatic, Normocephalic Neck: Normal Inspection, Supple, Non-Tender, Full Range of Motion Respiratory/Chest: No Respiratory Distress, Lungs Clear, Normal Breath Sounds, No Accessory Muscle Use, Chest Non-Tender Cardiovascular: Normal Peripheral Pulses, Regular Rate, Rhythm, No Edema, No Gallop, No JVD, No Murmur, No Rub GI/Abdominal: Normal Bowel Sounds, Soft, Non-Tender, No Organomegaly, No Distention, No Abnormal Bruit, No Mass (Female) Exam: Deferred Rectal (Female) Exam: Normal Exam, Normal Rectal Tone, Deferred Back Exam: Decreased Range of Motion Extremities: Limited Range of Motion (Pain with flexion and extension), Other ( Left knee swelling) Neurological: Alert, Oriented, CN II-XII Intact, Normal Cognition, Normal Gait, Normal Reflexes, No Motor/Sensory Deficits Psychiatric: Normal Affect, Normal Mood Skin Exam: Warm, Dry, Intact, Normal Color, No Rash Lymphatic: No Adenopathy ED TRAUMA EXTREMITY PROCEDURES - Additional/Other Procedure(s) Other (Free Text) Procedure(s): At this time her knee was examined she had severe pain on flexion and extension we decided to tap her knee at this time we prepped her knee and using 1% Xylocaine obtain anesthesia using a 18-gauge and a 20 mL syringe the joint space was entered and 30 mL of bloody fluid was removed there was no fat in it therefore we decided to go ahead and injected with 40 of Depo-Medrol at this time patient tolerated well procedure will be sent back to the half-way she is to resume her pain medications if not better in 3 days to follow-up with primary and referred toward the Course - Vital Signs Last Recorded V/S: Last Vital Signs Temp 98.4 F 09/22/17 16:20 Pulse 96 09/22/17 16:20 Resp 20 09/22/17 16:20 BP 105/54 L 09/22/17 16:20 Pulse Ox 99 09/22/17 16:20 - Orders/Labs/Meds Orders: Active Orders 24 hr Category Date Time Status Knee 3V Lt [CR] Stat Exams 09/22/17 16:27 Ordered Departure - Departure Time of Disposition: 17:30 Disposition: Home, Self-Care 01 Condition: Fair Clinical Impression: Effusion, left knee - Discharge Information *PRESCRIPTION DRUG MONITORING PROGRAM REVIEWED*: No *COPY OF PRESCRIPTION DRUG MONITORING REPORT IN PATIENT STEPHANE: No Care Plan Goals: Patient will be sent home she is to continue her Ultram for pain should follow- up with primary if not better please see procedure note - My Orders Last 24 Hours: My Active Orders 09/22/17 16:27 Knee 3V Lt [CR] Stat - Assessment/Plan Last 24 Hours: My Active Orders 09/22/17 16:27 Knee 3V Lt [CR] Stat
[2017-09-22] MEDS ORDERED: methylPREDNISolone Acetate 40 MG/ML SDV IARTIC ONE (17:06)
[2017-09-22 17:40] VITALS: BP 119/77
== END 2017-09-22 19:15 | disposition home or self-care (01) ==
LOC: LL.ED 16:19
DX: M25.462 Effusion, left knee (principal); I11.0 Hypertensive heart disease with heart failure; I50.9 Heart failure, unspecified; J44.9 Chronic obstructive pulmonary disease, unspecified; Z91.018 Allergy to other foods; Z79.899 Other long term (current) drug therapy
CPT/HCPCS: 20610; 36415; 51798; 73560-LT; 85025; 99283; 99284; J1030